=== PATIENT | female | born 1935 | race African-American/Black ===

== ENCOUNTER 2025-02-13 11:23 | Inpatient (IN) | payer OTHER ==
[~2025-02-13] VITALS: Ht 152.4 cm; Wt 52.2 kg
[~2025-02-13 11:23] MED LIST: ATOR10TA PO; CARV12.545 PO; FOLI-43 MT; FURO-152 PO; LOSA1TAB37 MT; PROT40 PO; SPIR25TA6 PO; VITA59DR
[2025-02-13 11:28] VITALS: O2SAT 100
[2025-02-13 12:52] LABS: BASOPHILS % 0.6 % (0.0-2.0); EOSINOPHILS % 8.3 % (0.0-5.0); HEMATOCRIT. 26.8 % (36.0-48.0); HEMOGLOBIN. 8.8 g/dL (12.0-16.0); LYMPHOCYTES % 15.4 % (20.0-50.0); MEAN PLATELET VOLUME 6.5 fl (7.4-10.4); MONOCYTES % 7.0 % (2.0-8.0); NEUTROPHILS % 68.7 % (40.0-76.0); PLATELET 111 x1000/uL (130-400); RED BLOOD CELL COUNT 2.60 mill/uL (4.2-5.4); RED CELL DISTRIBUTION WIDTH 24.3 % (11.6-14.6)
[2025-02-13 12:56] LABS: ADD RBC MORPHOLOGY YES
[2025-02-13 13:06] LABS: UREA NITROGEN BLOOD 16 mg/dL (9-23)
[2025-02-13 13:07] LABS: ASPARTATE AMINOTRANSFERASE 30 IU/L (<34)
[2025-02-13 13:08] LABS: BILIRUBIN DIRECT 0.2 mg/dL (<=3.0); BILIRUBIN TOTAL 0.6 mg/dL (0.1-1.0); PROTEIN TOTAL 6.1 g/dL (6.0-8.3)
[2025-02-13 13:11] LABS: CREATININE 1.4 mg/dL (0.6-1.0)
[2025-02-13 13:13] LABS: TROPONIN I HIGH SENSITIVITY 46 ng/L (3.0-34)
[2025-02-13 17:46] LABS: PLATELET ESTIMATE DECREASED
[2025-02-13 19:13] LABS: TROPONIN I HIGH SENSITIVITY 49 ng/L (3.0-34)
[2025-02-13 22:00] VITALS: BP 164/69; PULSE 75; RESP 18; TEMP 36.2
[2025-02-13] MEDS ORDERED: IPRATROPIUM/ALBUTEROL 0.5-3(2.5)MG/3ML NEB HHN PRN (22:30)
[2025-02-13] MEDS: CLONIDINE 0.1MG TABLET PO PRN (22:53)
[2025-02-14] VITALS (7 sets, daily range): BP systolic 101–165; BP diastolic 61–94; PULSE 75–92; RESP 18–19; TEMP 36.4736–37.2; O2SAT 100
[2025-02-14 09:07] LABS: PLATELET 105 x1000/uL (130-400); RED BLOOD CELL COUNT 2.58 mill/uL (4.2-5.4); RED CELL DISTRIBUTION WIDTH 24.6 % (11.6-14.6)
[2025-02-14 09:24] LABS: CREATININE 1.1 mg/dL (0.6-1.0)
[2025-02-14 09:25] LABS: LDL CHOLESTEROL 62 mg/dL (5-100); TRIGLYCERIDE 157 mg/dL (0-150); UREA NITROGEN BLOOD 15 mg/dL (9-23)
[2025-02-14 09:26] LABS: ASPARTATE AMINOTRANSFERASE 30 IU/L (<34)
[2025-02-14 09:27] LABS: BILIRUBIN TOTAL 0.7 mg/dL (0.1-1.0); PROTEIN TOTAL 5.6 g/dL (6.0-8.3)
[2025-02-14] MEDS ORDERED: DOCUSATE SODIUM 100MG CAPSULE PO PRN (11:30)
[2025-02-14] MEDS ORDERED: ONDANSETRON HCL 4MG/2ML INJ IV PRN (11:30)
[2025-02-14] MEDS: ACETAMINOPHEN 325MG TABLET PO PRN (13:03)
[2025-02-14] MEDS: FOLIC ACID 1MG TABLET PO SCH (15:22)
[2025-02-14] MEDS: LOSARTAN 25 MG TABLET PO SCH (15:24)
[2025-02-14] MEDS: SPIRONOLACTONE 25MG TABLET PO SCH (15:24)
[2025-02-14] MEDS: CARVEDILOL 6.25 MG TABLET PO SCH (21:46)
[2025-02-14] MEDS: ATORVASTATIN CALCIUM 10MG TABLET PO SCH (21:46)
== END 2025-02-14 22:20 | disposition short-term general hospital (02) | DRG 683 ==
LOC: ER 11:23 → EDBEDREQ 18:53 → EDBEDREQTM 18:53 → ENRESERV 20:25 → 6WST 21:13
PROVIDERS: ADMIT Internal Medicine; ATTEND Internal Medicine
DX: N17.9 Acute kidney failure, unspecified (principal); I13.0 Hypertensive heart and chronic kidney disease with heart failure and stage 1 through stage 4 chronic kidney disease, or unspecified chronic kidney disease; D69.6 Thrombocytopenia, unspecified; N18.9 Chronic kidney disease, unspecified; D53.9 Nutritional anemia, unspecified; J44.89 Other specified chronic obstructive pulmonary disease; R55 Syncope and collapse; E78.5 Hyperlipidemia, unspecified; Z79.899 Other long term (current) drug therapy
CPT/HCPCS: 36415; 80048; 80053; 80061; 80076; 83036; 83735; 83880; 84443; 84484; 85025; 85027; 85379; 93005; 99285